=== PATIENT | female | born 1995 | race Caucasian/White ===

== ENCOUNTER 2019-12-06 12:13 | Day surgery (SDC) | payer OTHER ==
[2019-12-06] MEDS ORDERED: hydrALAZINE 20 MG/ML VIAL SLOW IVP PRN (12:35)
[2019-12-06 12:47] VITALS: BMI 27.6
[2019-12-06 12:49] VITALS: BP 114/73; TEMP 98.9
--- NOTE | 2019-12-06 13:30 | PDOC.LDHP ---
Labor and Delivery H&P Chief complaint: decreased movement HPI: 24 y/o G1 at 34w4d, patient of Dr. France, sent from clinic for decreased movement. Patient reports eating cereal at 2am and has not felt baby move this morning. Denies VB, LOF, ctx, or other concerns. ROS neg for HEENT, cv, pulm, gi, gu, neuro, psych, skin, musculoskeletal or constitutional symptoms other than mentioned above. OB History Details: First Current complications: gestational diabetes (diet controlled) Past Medical History: None Current medications: pre- vitamins Previous surgical history: none Allergies/Adverse Reactions: Allergies Allergy/AdvReac Type Severity Reaction Status Date / Time No Known Drug Allergies Allergy Verified 12/06/19 12:44 Social history: none - Physical Exam Vital signs reviewed and normal: yes General: NAD, resting Lungs: nonlabored breathing Abdomen: gravid Extremeties: no edema FHT: category 1 (145, mod variability, + accels, no decels) [place] contractions every: occasional - Assessment 24 y/o G1 at 34w4d with reactive NST. Now feeling baby move and patient feels much better. - Plan -: Counseled on appropriate GDM diet. D/c home with precautions.
== END 2019-12-06 14:20 | disposition home health service (06) ==
LOC: L&D/OP 12:13
PROVIDERS: ATTEND Obstetrics & Gynecology
DX: O36.8130 Decreased fetal movements, third trimester, not applicable or unspecified (principal); O24.410 Gestational diabetes mellitus in pregnancy, diet controlled; Z3A.34 34 weeks gestation of pregnancy
CPT/HCPCS: 59025; 99282

== ENCOUNTER 2019-12-27 23:25 | Inpatient (IN) | payer OTHER ==
[2019-12-28] MEDS ORDERED: hydrALAZINE 20 MG/ML VIAL SLOW IVP PRN ×3 (00:16→19:51)
[2019-12-28 00:50] LABS: Amnisure Test RUPTURE DETECTED (No Rupture)
[2019-12-28 00:51] LABS: Amnisure Internal Control QC ACCEPTABLE (ACCEPTABLE)
[2019-12-28] MEDS ORDERED: Carboprost 250 MCG/ML AMP IM PRN (00:55)
[2019-12-28] MEDS ORDERED: Butorphanol Tartrate 1 MG/ML VIAL SLOW IVP PRN (00:55)
[2019-12-28] MEDS ORDERED: Ibuprofen 800 MG TAB PO PRN (00:55)
[2019-12-28] MEDS ORDERED: Meperidine HCl/PF 25 MG/ML VIAL IM/IV PRN (00:55)
[2019-12-28] MEDS ORDERED: Lidocaine 1% (PF) 30 ML VIAL SC PRN (00:55)
[2019-12-28] MEDS ORDERED: Methylergonovine 0.2 MG/ML VIAL IM PRN (00:55)
[2019-12-28] MEDS ORDERED: Ondansetron PF 4 MG/2 ML Vial IVP PRN ×2 (00:55→09:26)
[2019-12-28] MEDS ORDERED: Acetaminophen 500 MG TAB PO PRN (00:55)
[2019-12-28] MEDS ORDERED: NS / Oxytocin 40 units/1000ml 1,000 ML IV PRN (00:55)
[2019-12-28] MEDS ORDERED: Misoprostol 200 MCG TAB PR PRN (00:55)
[2019-12-28] MEDS ORDERED: Promethazine HCl 25 MG/ML VIAL IM PRN ×2 (00:55→09:26)
[2019-12-28] MEDS ORDERED: HYDROcodone/Acetaminophen 5/325 mg Tablet PO PRN ×2 (00:55)
[2019-12-28] MEDS ORDERED: NS w/ Oxytocin 10 units 500 ML IV SCH (01:00)
[2019-12-28] MEDS ORDERED: Lactated Ringer's 1,000 ML IV SCH (01:00)
[2019-12-28] MEDS: Lactated Ringer's 1,000 ML IV SCH ×2 (01:29→14:57)
[2019-12-28 01:40] LABS: Hemoglobin 11.2 g/dL (12.0-16.0); Mean Corpuscular HGB CONC 34.6 g/dL (32.0-36.0); Mean Corpuscular Hemoglobin 29.6 pg (27.0-31.0); Mean Corpuscular Volume 85.6 fL (78.0-98.0); Mean Platelet Volume 9.2 fL (7.4-10.4); Platelet Count 144 thou/uL (130-400); RBC Distribution Width 14.4 % (11.5-14.5); Red Blood Cell (RBC) Count 3.79 mill/uL (4.20-5.40); White Blood Cell (WBC) Count 7.7 thou/uL (4.8-10.8)
[2019-12-28 01:53] VITALS: BMI 28.9
[2019-12-28 02:18] LABS: HBSAg Index 0.25 S/CO (0-0.99); Hep B Surf Ag Non-Reactive S/CO (NonReactive)
--- NOTE | 2019-12-28 02:43 | PDOC.LDHP ---
Labor and Delivery H&P Chief complaint: loss of fluid HPI: 24 yo WF c/o LOF at 945PM, now with UCs. Current gestational age (weeks): 38 Due date: 01/13/20 Dating criteria: last menstrual period Grav: 1 Para: 0 OB History Details: PNC with Dr. France. Current complications: gestational diabetes Abnormal US findings: No Past Medical History: none Current medications: pre- vitamins, iron Previous surgical history: other (T&A, wisdom teeth) Allergies/Adverse Reactions: Allergies Allergy/AdvReac Type Severity Reaction Status Date / Time No Known Drug Allergies Allergy Verified 12/06/19 12:44 Social history: none - Physical Exam Vital signs reviewed and normal: yes General: resting Heart: RRR Lungs: CTAB Abdomen: gravid Extremeties: trace edema FHT: category 1 [place] contractions every: q 5-7 mins - Vaginal Exam cm dilated: 3 Effacement: 75% Station: -2 - OB Labs GBS: negative - Assessment L&D Assessment: term rupture in membranes - Plan Plan: admit to L&D, labor augmentation if indicated, informed consent obtained, anesthesia consult for pain management, other (Dr. France notified of admit by Labor RN)
[2019-12-28] MEDS ORDERED: FLU VACC QS2019-20(6MOS UP)/PF 60 MCG/0.5 ML SYRINGE IM ONE (02:45)
[2019-12-28 04:13] LABS: Syphilis Antibody Nonreactive (Nonreactive); Syphilis Antibody Index 0.05 S/CO (<1.00 Non-Reactive)
[2019-12-28] MEDS ORDERED: Labetalol HCl 100 MG/20 ML VIAL ONE (07:32)
[2019-12-28] MEDS: Labetalol HCl 100 MG/20 ML VIAL SLOW IVP SCH ×2 (07:34→12:05)
[2019-12-28] MEDS ORDERED: Fentanyl 4 mcg/Bup 0.1% Cadd 100 ML ONE ×2 (08:34→16:02)
[2019-12-28] MEDS ORDERED: Bupivacaine 0.5% 10 ML VIAL ONE (08:53)
[2019-12-28] MEDS ORDERED: Fentanyl 100 MCG/2 ML VIAL ONE (08:53)
[2019-12-28] MEDS ORDERED: Fentanyl 100 MCG/2 ML VIAL I-THECAL ONE (09:24)
[2019-12-28] MEDS ORDERED: Bupivacaine 0.25% 10 ML VIAL EPIDURAL ONE (09:25)
[2019-12-28] MEDS ORDERED: Naloxone HCl 0.4 mg/ml Vial IVP PRN ×2 (09:26)
[2019-12-28] MEDS ORDERED: diphenhydrAMINE 50 MG/ML VIAL IVP PRN (09:26)
[2019-12-28] MEDS ORDERED: Acetaminophen 325 MG TAB PO PRN (09:26)
[2019-12-28] MEDS ORDERED: EPHEDRINE 25 MG/5 ML SYRINGE SLOW IVP PRN (09:26)
[2019-12-28] MEDS ORDERED: Lactated Ringer's 500 ML IV PRN (09:26)
[2019-12-28] MEDS ORDERED: Communication Order-Pharmacy FS SCH (09:30)
[2019-12-28] MEDS ORDERED: Fentanyl 4 mcg/Bupivacaine 0.1% Cassette 100 ML EPIDURAL SCH (09:30)
[2019-12-28] MEDS ORDERED: Magnesium Sulfate 20 gm/500 ml 20 GM/500 ML BAG ONE (12:14)
[2019-12-28] MEDS: Magnesium Sulfate 20 gm/500 ml 20 GM/500 ML BAG IVPB PRN ×2 (12:16→20:56)
[2019-12-28] MEDS ORDERED: Lidocaine 1.5%/Epinephrine 1:200,000 5 ML AMPUL IJ ONE (16:11)
[2019-12-28] MEDS ORDERED: Calcium Gluconate 4.6 MEQ in Sodium Chloride 0.9% 100 ML IVPB PRN (19:51)
[2019-12-28] MEDS ORDERED: Bisacodyl 10 MG SUPP PR PRN (19:51)
[2019-12-28] MEDS ORDERED: traMADol HCl 50 MG TAB PO PRN ×2 (19:51)
[2019-12-28] MEDS ORDERED: Milk Of Magnesia 30 ML UDCUP PO PRN (19:51)
[2019-12-28] MEDS ORDERED: Benzocaine-Menthol 82.5 ML CAN TOP PRN (19:51)
--- NOTE | 2019-12-28 19:51 | PDOC.OPDEL ---
OB Operative/Delivery Note Delivery Dr/Surgeon: Román Pre-Delivery Diagnosis: active labor Procedure/Post Delivery Dx: spontaneous vaginal delivery Weeks gestation: 37 Anesthesia: epidural - Findings A Sex: female - 1 min: 7 - 5 min: 9 - Additional Findings/Plan Placenta delivered: spontaneous Repaired Obstetrical Laceration: 2nd degree (developed intrapartum severe pih. magnesium started.)
[2019-12-28] MEDS: NS / Oxytocin 40 units/1000ml 1,000 ML IV SCH ×2 (20:56→22:06)
[2019-12-29] MEDS: Lactated Ringer's 1,000 ML IV SCH ×2 (06:43→13:17)
[2019-12-29] MEDS: Ibuprofen 800 MG TAB PO SCH ×4 (06:43→21:43)
[2019-12-29] MEDS: Magnesium Sulfate 20 gm/500 ml 20 GM/500 ML BAG IVPB PRN (07:32)
[2019-12-29] MEDS ORDERED: Ferrous Sulfate 325 MG TAB PO SCH (08:00)
[2019-12-29] MEDS ORDERED: Adacel (T-DAP) 0.5 ML SYRINGE IM ONE (09:00)
[2019-12-29] MEDS: Prenatal Vitamin 1 TAB PO SCH (13:16)
[2019-12-29] MEDS: Docusate Calcium (SURFAK) 240 MG CAP PO SCH ×3 (13:16→21:43)
[2019-12-30] MEDS: Ibuprofen 800 MG TAB PO SCH ×2 (05:02→13:55)
--- NOTE | 2019-12-30 08:41 | PDOC.PP ---
Post Progress Note Post Day #: 2 PO intake tolerated: yes Flatus: yes Ambulation: yes Vital Signs (12 hours) Temp Pulse Resp BP 12/30/19 05:00 98.7 F 64 18 142/77 H 12/29/19 23:45 98.9 F 63 18 128/70 Weight Weight 158 lb Result Diagrams: 12/28/19 01:30 Additional Labs: Post Labs Blood Type O POSITIVE 12/28/19 03:05 Hep Bs Antigen Non-Reactive S/CO (NonReactive) 12/28/19 01:30 - Assessment/Plan Post day 1-2.. Doing well. Plan for discharge later today. f/u 6 weeks.
[2019-12-30 08:47] VITALS: BP 147/82; TEMP 98.1
[2019-12-30] MEDS: Prenatal Vitamin 1 TAB PO SCH (09:39)
[2019-12-30] MEDS: Docusate Calcium (SURFAK) 240 MG CAP PO SCH (09:39)
== END 2019-12-30 14:45 | disposition home or self-care (01) | DRG 807 ==
LOC: L&D/OP 23:25 → L&D-LIB 12-28 00:55 → L&D 12-28 08:03 → 3SW 12-29 12:35
PROVIDERS: ADMIT Obstetrics & Gynecology; ATTEND Obstetrics & Gynecology
PROC: 10E0XZZ Delivery of Products of Conception, External Approach (ICD-10-PCS; principal; 2019-12-28)
PROC: 0KQM0ZZ Repair Perineum Muscle, Open Approach (ICD-10-PCS; 2019-12-28)
DX: O24.429 Gestational diabetes mellitus in childbirth, unspecified control (principal); Z37.0 Single live birth; Z3A.37 37 weeks gestation of pregnancy; O13.4 Gestational [pregnancy-induced] hypertension without significant proteinuria, complicating childbirth; O70.1 Second degree perineal laceration during delivery
CPT/HCPCS: 36415; 51702; 83735; 84112; 85027; 86780; 86850; 86900; 86901; 87340; 99285; J0360; J2405; J2590; J3010; J3475; J3490